=== PATIENT | female | born 1975 | race African-American/Black ===

== ENCOUNTER 2017-02-22 13:15 | Emergency (ER) | payer OTHER ==
--- NOTE | ~2017-02-22 | EKG ---
PATIENT: KT LEAVITT UNIT #: [id number] Ventricular Rate: 57 BPM Atrial Rate: 57 BPM P-R Interval: 158 ms QRS Duration: 80 ms Q-T Interval: 420 ms QTC Calculation(Bezet): 408 ms P [place]on: -4 degrees Calculated R [place]: -16 degrees Calculated T [place]on: -17 degrees Diagnosis Line: Sinus bradycardia Diagnosis Line: Minimal voltage criteria for LVH, may be normal Diagnosis Line: variant Diagnosis Line: Nonspecific T wave abnormality Diagnosis Line: Abnormal ECG Diagnosis Line: Diagnosis Line: Confirmed by GEORGE ADKINS MD ([id number]) on Diagnosis Line: 02/22/2017 10:51:33 PM INTERPRETING MD: MARY
--- NOTE | ~2017-02-22 | CR72 ---
[facility] A Service of [facility] & [facility] RADIOLOGY TEXT RESULTS PATIENT: KT LEAVITT LOCATION: [facility] : [birth year] UNIT #: [id number] AGE: [address]: Zbigniew Lopez MD SEX: F ORDER DR: [id number] [facility] [address] [place], [place] [address] [id number] E MR#: [id number] Acc #: [id number] NAME: KT LEAVITT : 1975 SEX: F STUDY DATE/TIME: 02/22/2017 14:44 UNIT: [facility] ROOM: STUDY DESCRIPTION: CR Chest Single View Portable Attending Physician: Andi Lopez M.D. Ordering Physician: Ed Doctor [id number] [facility] Primary Care Physician: Primary Care Physician No MEDICAL IMAGING REPORT This report is preliminary unless electronic signature is present EXAM Portable chest, 02/22/2017 HISTORY 42-year-old female with chest pain for [address] chest, 06/20/2016 FINDINGS Frontal chest demonstrates clear lungs. No pleural effusion or pneumothorax. Heart size is borderline. Mediastinum and pulmonary vasculature unremarkable. IMPRESSION No acute cardiopulmonary findings. Dictated by... Fredy Jewell M.D. THIS IS AN ELECTRONICALLY VERIFIED REPORT Fredy Jewell M.D. at 02/22/2017 6:11 PM JULIANA/fidel TD: 02/22/2017 15:55 JOB #: [id number] MEDICAL IMAGING REPORT Page 1 of 1 COPY
[2017-02-22 15:33] LABS: BASOPHIL# 0.1 X10e3 (0-0.3); BASOPHIL% 1.2 % (0-2.5); EOSINOPHIL# 0.4 X10e3 (0-0.7); EOSINOPHIL% 4.3 % (0.0-7.0); HEMATOCRIT 39.8 % (35.0-45.0); HEMOGLOBIN 12.7 gm/dL (12.0-16.0); LYMPHOCYTE# 3.7 X10e3 (1.0-3.5); LYMPHOCYTE% 41.9 % (17.0-45.0); MEAN CELL VOLUME 83.8 FL (83-96); MEAN CORPUSCULAR HEMOGLOBIN 26.8 PG (28-34); MEAN PLATELET VOLUME 9.4 FL (6.5-11.5); MONOCYTE# 0.5 X10e3 (0-1.0); MONOCYTE% 5.2 % (3.0-12.0); NEUTROPHIL# 4.3 X10e3 (1.5-7.1); NEUTROPHIL% 47.4 % (40-75); PLATELET COUNT 271 X10e3 (140-420); RED BLOOD COUNT 4.75 X10e (3.90-5.30); RED CELL DISTRIBUTION WIDTH 13.7 % (11.0-15.5)
[2017-02-22 15:34] LABS: DIFF IND NO
[2017-02-22 15:39] LABS: POC - CKMB <1.0 ng/mL (0.0-7.9); POC - TROPONIN <0.05 ng/mL (<=0.05)
[2017-02-22 15:54] LABS: ALBUMIN SERUM 3.6 g/dL (3.5-5.0); BILIRUBIN, DIRECT 0.1 mg/dL (0.0-0.2); BILIRUBIN,INDIRECT 0.2 mg/dL (0.0-0.9); BILIRUBIN,TOTAL 0.3 mg/dL (0.2-2.0); CALCIUM SERUM 8.8 mg/dL (8.4-10.2); CREATININE SERUM 0.5 mg/dL (0.6-1.4); GLOM FILT RATE Estimated 137.4 mL/min (>60); POTASSIUM 4.2 mmol/L (3.5-5.1); PROTEIN TOTAL SERUM 7.6 g/dL (6.0-8.3)
== END 2017-02-22 17:50 | disposition home or self-care (01) ==
LOC: CED 13:15
PROVIDERS: Emergency Medicine
DX: M94.0 Chondrocostal junction syndrome [Tietze] (principal); M54.9 Dorsalgia, unspecified; G89.29 Other chronic pain; R51 Headache; R73.9 Hyperglycemia, unspecified
CPT/HCPCS: 36415; 71010; 80048; 80076; 82553; 84484; 85025; 93005; 96361; 96374; 99285; J1885